=== PATIENT | male | born 1950 | race Hispanic/Latino ===

== ENCOUNTER 2018-11-11 05:50 | Day surgery (SDC) | payer MEDICARE ==
[2018-11-11] MEDS ORDERED: TROP 1%/CYCLOPEN 1%/PHENYL 2% DROPS ONE ×2 (08:23→10:56)
[2018-11-11] MEDS ORDERED: PROPARACAINE 0.5% OPHTH SOL 15 ML BTTL ONE ×2 (08:23→10:56)
[2018-11-11] MEDS ORDERED: MOXIFLOXACIN HCL (OPHTH) 1 DROP DROPS ONE ×2 (08:23→10:55)
[2018-11-11] MEDS ORDERED: MIDAZOLAM INJ 2 MG/2 ML VIAL ONE (10:55)
[2018-11-11] MEDS ORDERED: PROPARACAINE 0.5% OPHTH SOL 15 ML BTTL RIGHT_EYE ONE (11:10)
[2018-11-11] MEDS ORDERED: MOXIFLOXACIN HCL (OPHTH) 1 DROP DROPS RIGHT_EYE ONE (11:25)
[2018-11-11] MEDS ORDERED: LIDOCAINE 1% 2 ML VIAL INJ ONE ×2 (11:25→11:31)
[2018-11-11] MEDS ORDERED: TOBRAMYCIN SULF 0.3 % OPHT SOL 1 DROP RIGHT_EYE ONE (11:26)
[2018-11-11] MEDS ORDERED: BRIMONIDINE 0.2% OPHTH DROPS RIGHT_EYE ONE (11:26)
[2018-11-11] MEDS ORDERED: DEXAMETHASONE 0.1% OPHTH SOL 1 DROP RIGHT_EYE ONE (11:26)
== END 2018-11-11 12:14 | disposition home or self-care (01) ==
LOC: AMB 05:50
PROVIDERS: ATTEND Ophthalmology
DX: H25.11 Age-related nuclear cataract, right eye (principal); I10 Essential (primary) hypertension; I25.10 Atherosclerotic heart disease of native coronary artery without angina pectoris; E11.36 Type 2 diabetes mellitus with diabetic cataract; Z95.1 Presence of aortocoronary bypass graft; Z79.84 Long term (current) use of oral hypoglycemic drugs; Z79.82 Long term (current) use of aspirin
CPT/HCPCS: 00142; 66984; 82948; J2250